=== PATIENT | male | born 1990 | race Caucasian/White ===

== ENCOUNTER 2019-05-24 18:33 | Inpatient (IN) | payer OTHER ==
[~2019-05-24] VITALS: Ht 165.1 cm; Wt 124.9 kg
[2019-05-24] MEDS ORDERED: ALBUTEROL (0.083%) 2.5MG/3ML NEB HHN STA (19:11)
[2019-05-24] MEDS ORDERED: MAGNESIUM 2 G PREMIX 50 ML IV STA (19:11)
[2019-05-24] MEDS ORDERED: METHYLPREDNISOLONE SOD SUCC 125 MG/2 ML VIAL IV STA (19:11)
[2019-05-24] MEDS ORDERED: IPRATROPIUM BROMIDE (0.02%) 0.5MG/2.5ML NEB HHN STA (19:11)
[2019-05-24] MEDS ORDERED: ALBUTEROL (0.083%) 2.5MG/3ML NEB HHN SCH (21:30)
[2019-05-24 22:46] LABS: BASOPHILS % 0.4 % (0.0-2.0); EOSINOPHILS % 0.7 % (0.0-5.0); HEMATOCRIT. 46.5 % (42.0-52.0); HEMOGLOBIN. 16.1 g/dL (14.0-18.0); LYMPHOCYTES % 7.8 % (20.0-50.0); MEAN CORPUSCULAR HEMOGLOBIN 31.4 pg (28.0-32.0); MEAN CORPUSCULAR VOLUME 90.9 fL (80.0-94.0); MONOCYTES % 2.2 % (2.0-8.0); NEUTROPHILS % 88.9 % (40.0-76.0); PLATELET 217 x1000/uL (130-400); RED BLOOD CELL COUNT 5.12 mill/uL (4.7-6.1); RED CELL DISTRIBUTION WIDTH 12.2 % (11.6-14.6)
[2019-05-24 22:54] LABS: CHLORIDE 103 mEq/L (98-107)
[2019-05-25] VITALS: BP 139/69
[2019-05-25] MEDS ORDERED: BECL10.6 IH (00:41)
[2019-05-25] MEDS ORDERED: ALBU18HF2 IH (00:41)
[2019-05-25] MEDS ORDERED: ZOLPIDEM TARTRATE 5MG TABLET PO PRN (01:00)
[2019-05-25] MEDS ORDERED: IPRATROPIUM/ALBUTEROL 0.5-3(2.5)MG/3ML NEB HHN PRN (01:45)
[2019-05-25 04:00] VITALS: BP 126/61
[2019-05-25] MEDS: IPRATROPIUM/ALBUTEROL 0.5-3(2.5)MG/3ML NEB HHN SCH ×3 (06:06→12:21)
[2019-05-25] MEDS: METHYLPREDNISOLONE SOD SUCC 40 MG/ML VIAL IV SCH ×2 (06:32→13:52)
[2019-05-25 08:00] VITALS: BP 131/65
[2019-05-25] MEDS ORDERED: PNEUMOCOCCAL 23-VAL P-SAC VAC 0.5 ML IM ONE (08:00)
[2019-05-25] MEDS ORDERED: INFLUENZA VIRUS VACCINE(AFLURIA) 0.5ML SYR IM ONE (10:00)
[2019-05-25 14:21] VITALS: BP 129/57
== END 2019-05-25 15:55 | disposition home or self-care (01) | DRG 141 ==
LOC: ER 18:33 → 7WST 22:28 → ENRESERV 23:20
PROVIDERS: ADMIT Internal Medicine; ATTEND Internal Medicine
DX: J45.901 Unspecified asthma with (acute) exacerbation (principal); Z68.42 Body mass index [BMI] 45.0-49.9, adult; E66.9 Obesity, unspecified; J98.11 Atelectasis; Z82.5 Family history of asthma and other chronic lower respiratory diseases; Z79.899 Other long term (current) drug therapy; Z71.89 Other specified counseling
CPT/HCPCS: 36415; 71045; 80053; 83880; 84484; 85025; 87804; 90686; 90732; 93005; 94640; 94644; 99285; J2920; J2930; J3475; J7611; J7620

== ENCOUNTER 2019-06-02 20:28 | Emergency (ER) | payer OTHER ==
[~2019-06-02] VITALS: Ht 165.1 cm; Wt 127.0 kg
[~2019-06-02 20:28] MED LIST: ALBU18HF2 IH; BECL10.6 IH
[2019-06-02] MEDS ORDERED: ALBUTEROL (0.083%) 2.5MG/3ML NEB HHN STA (21:13)
[2019-06-02] MEDS ORDERED: IPRATROPIUM BROMIDE (0.02%) 0.5MG/2.5ML NEB HHN STA (21:13)
[2019-06-02] MEDS ORDERED: PREDNISONE 20MG TABLET PO STA (21:13)
[2019-06-02] MEDS ORDERED: HYDROCODONE/ACETAMINOPHEN 5/325MG TABLET PO ONE (21:30)
[2019-06-02 23:18] VITALS: BP 135/65
== END 2019-06-02 23:19 | disposition home or self-care (01) ==
LOC: ER 20:28
DX: J45.901 Unspecified asthma with (acute) exacerbation (principal); S80.02XA Contusion of left knee, initial encounter; W01.0XXA Fall on same level from slipping, tripping and stumbling without subsequent striking against object, initial encounter; Y93.89 Activity, other specified; Y92.488 Other paved roadways as the place of occurrence of the external cause
CPT/HCPCS: 71045; 73560; 99283; J7512; J7611

== ENCOUNTER 2019-07-01 16:04 | Emergency (ER) | payer OTHER ==
[~2019-07-01] VITALS: Ht 162.6 cm; Wt 123.0 kg
[2019-07-01] MEDS ORDERED: DEXAMETHASONE 4MG TABLET PO ONE (16:30)
[2019-07-01] MEDS ORDERED: IPRATROPIUM/ALBUTEROL 0.5-3(2.5)MG/3ML NEB HHN ONE ×2 (16:30→17:00)
[2019-07-01] MEDS ORDERED: IPRATROPIUM BROMIDE (0.02%) 0.5MG/2.5ML NEB HHN ONE (17:00)
[2019-07-01] MEDS ORDERED: ALBUTEROL (0.5%) 2.5MG/0.5ML NEB HHN ONE (17:00)
[2019-07-01] MEDS ORDERED: ALBUTEROL 6.7GM HFA INHALER ORI ONE (17:15)
[2019-07-01 17:38] VITALS: BP 152/58
== END 2019-07-01 18:01 | disposition home or self-care (01) ==
LOC: ER 16:04
DX: J45.20 Mild intermittent asthma, uncomplicated (principal); J30.9 Allergic rhinitis, unspecified
CPT/HCPCS: 71045; 94640; 99283; J7610; J8540; Z7610

== ENCOUNTER 2019-07-13 00:56 | Emergency (ER) | payer OTHER ==
[~2019-07-13] VITALS: Ht 175.3 cm; Wt 125.0 kg
[2019-07-13] MEDS ORDERED: IPRATROPIUM BROMIDE (0.02%) 0.5MG/2.5ML NEB HHN STA (01:15)
[2019-07-13] MEDS ORDERED: PREDNISONE 20MG TABLET PO STA (01:15)
[2019-07-13] MEDS ORDERED: ALBUTEROL (0.083%) 2.5MG/3ML NEB HHN STA (01:15)
[2019-07-13 02:55] VITALS: BP 132/65
== END 2019-07-13 02:50 | disposition home or self-care (01) ==
LOC: ER 00:56
DX: J45.901 Unspecified asthma with (acute) exacerbation (principal); Z79.899 Other long term (current) drug therapy
CPT/HCPCS: 94640; 99283; J7512; Z7610

== ENCOUNTER 2019-07-22 22:05 | Emergency (ER) | payer OTHER ==
[~2019-07-22] VITALS: Ht 165.1 cm; Wt 115.0 kg
[2019-07-22] MEDS ORDERED: ALBUTEROL (0.083%) 2.5MG/3ML NEB HHN STA (22:42)
[2019-07-22] MEDS ORDERED: ACETAMINOPHEN WITH CODEINE 300/30MG TABLET PO STA (22:42)
[2019-07-22] MEDS ORDERED: PREDNISONE 20MG TABLET PO STA (22:42)
[2019-07-22] MEDS ORDERED: CEPHALEXIN 250MG CAPSULE PO ONE (22:45)
[2019-07-23] MEDS ORDERED: IPRATROPIUM/ALBUTEROL 0.5-3(2.5)MG/3ML NEB HHN ONE
[2019-07-23 01:35] VITALS: BP 136/89
== END 2019-07-23 01:39 | disposition home or self-care (01) ==
LOC: ER 22:05
DX: J45.901 Unspecified asthma with (acute) exacerbation (principal); L03.313 Cellulitis of chest wall
CPT/HCPCS: 71045; 94640; 99284; J7512; J7610; Z7610

== ENCOUNTER 2019-07-29 07:58 | Emergency (ER) | payer OTHER ==
[~2019-07-29] VITALS: Ht 167.6 cm; Wt 100.0 kg
[2019-07-29] MEDS ORDERED: CEPHALEXIN 250MG CAPSULE PO ONE (08:30)
[2019-07-29] MEDS ORDERED: SULFAMETHOXAZOLE/TRIMETHOPRIM 800/160MG TABLET PO ONE (08:30)
[2019-07-29] MEDS ORDERED: LIDOCAINE HCL/EPINEPHRINE 1%-EPI 1:100,000 30 ML VIAL INFIL ONE (08:30)
[2019-07-29] MEDS ORDERED: LIDOCAINE HCL/EPINEPHRINE 1%-EPI 1:100,000 20 ML VIAL INFIL NR (08:45)
[2019-07-29] MEDS ORDERED: HYDROCODONE/ACETAMINOPHEN 5/325MG TABLET PO ONE (09:15)
[2019-07-29 09:56] VITALS: BP 125/76
[2019-08-07] MEDS ORDERED: APIX5TAB MT (03:25)
== END 2019-07-29 09:59 | disposition home or self-care (01) ==
LOC: ER 08:10
DX: L02.213 Cutaneous abscess of chest wall (principal); J45.909 Unspecified asthma, uncomplicated
CPT/HCPCS: 10060; 99284; J3490

== ENCOUNTER 2019-07-30 22:38 | Emergency (ER) | payer OTHER ==
[~2019-07-30] VITALS: Ht 165.1 cm; Wt 123.0 kg
[2019-07-30] MEDS ORDERED: KETOROLAC 30MG/ML VIAL IM ONE (23:45)
[2019-07-31] MEDS ORDERED: CLINDAMYCIN 600 MG in DEXTROSE 5% WATER 50 ML IV ONE (00:15)
[2019-07-31] MEDS ORDERED: CLINDAMYCIN 600MG PREMIX 50 ML IV SCH (01:00)
[2019-07-31 01:13] VITALS: BP 128/81
== END 2019-07-31 01:17 | disposition home or self-care (01) ==
LOC: ER 22:38
DX: M79.89 Other specified soft tissue disorders (principal); J45.909 Unspecified asthma, uncomplicated
CPT/HCPCS: 96365; 96372; 99283; J1885; J3490; J7060

== ENCOUNTER 2019-08-04 02:21 | Emergency (ER) | payer OTHER ==
[~2019-08-04] VITALS: Ht 165.1 cm; Wt 123.0 kg
[2019-08-04 02:31] VITALS: BP 106/79
[2019-08-04] MEDS ORDERED: BACITRACIN ZINC OINT UDPKT TOP ONE (04:45)
[2019-08-05] MEDS ORDERED: METH-611 MT (14:15)
[2019-08-07] MEDS ORDERED: APIX5TAB MT (03:25)
== END 2019-08-04 05:21 | disposition home or self-care (01) ==
LOC: ER 02:21
DX: Z48.00 Encounter for change or removal of nonsurgical wound dressing (principal); L02.213 Cutaneous abscess of chest wall
CPT/HCPCS: 99282

== ENCOUNTER 2019-08-05 00:48 | Inpatient (IN) | payer OTHER ==
[~2019-08-05] VITALS: Ht 165.1 cm; Wt 128.8 kg
[2019-08-05 03:57] LABS: CHLORIDE 110 mEq/L (98-107)
[2019-08-05 04:06] LABS: BASOPHILS % 0.7 % (0.0-2.0); EOSINOPHILS % 5.6 % (0.0-5.0); HEMATOCRIT. 42.8 % (42.0-52.0); LYMPHOCYTES % 28.9 % (20.0-50.0); MEAN CORPUSCULAR HEMOGLOBIN 29.4 pg (28.0-32.0); MEAN CORPUSCULAR VOLUME 89.7 fL (80.0-94.0); MEAN PLATELET VOLUME 9.6 fl (7.4-10.4); MONOCYTES % 10.1 % (2.0-8.0); NEUTROPHILS % 54.7 % (40.0-76.0); PLATELET 162 x1000/uL (130-400); RED BLOOD CELL COUNT 4.77 mill/uL (4.7-6.1); RED CELL DISTRIBUTION WIDTH 12.3 % (11.6-14.6)
[2019-08-05] MEDS ORDERED: CLINDAMYCIN 900 MG in DEXTROSE 5% WATER 50 ML IV ONE (05:30)
[2019-08-05] MEDS ORDERED: ENOXAPARIN 120MG/0.8ML SYR SUBCUT ONE (06:30)
[2019-08-05] MEDS ORDERED: CLINDAMYCIN 900 MG PREMIX 50 ML IV ONE (06:45)
[2019-08-05] MEDS ORDERED: ACETAMINOPHEN 325MG TABLET PO PRN (09:00)
[2019-08-05] MEDS ORDERED: CLINDAMYCIN 600 MG in DEXTROSE 5% WATER 50 ML IV ONE (09:00)
[2019-08-05] MEDS ORDERED: ONDANSETRON HCL 4MG/2ML INJ IV PRN (09:00)
[2019-08-05] MEDS ORDERED: CLONIDINE 0.1MG TABLET PO PRN (09:00)
[2019-08-05] MEDS ORDERED: IPRATROPIUM/ALBUTEROL 0.5-3(2.5)MG/3ML NEB HHN PRN (09:00)
[2019-08-05 09:48] VITALS: BP 120/57
[2019-08-05] MEDS ORDERED: METH-611 MT (14:15)
[2019-08-05] MEDS ORDERED: METHADONE HCL 10MG TABLET PO NR (14:31)
[2019-08-05 17:06] LABS: PROTHROMBIN TIME 10.5 sec (9.6-11.0)
[2019-08-05 20:00] VITALS: BP 110/50
[2019-08-06] VITALS: BP 112/68
[2019-08-06] MEDS: ENOXAPARIN 150MG/ML SYR SUBCUT SCH ×2 (00:02→11:47)
[2019-08-06 04:00] VITALS: BP 112/51
[2019-08-06 07:21] LABS: BASOPHILS % 0.9 % (0.0-2.0); EOSINOPHILS % 7.1 % (0.0-5.0); HEMATOCRIT. 38.5 % (42.0-52.0); HEMOGLOBIN. 12.9 g/dL (14.0-18.0); LYMPHOCYTES % 42.9 % (20.0-50.0); MEAN CORPUSCULAR HEMOGLOBIN 29.7 pg (28.0-32.0); MEAN CORPUSCULAR VOLUME 88.8 fL (80.0-94.0); MONOCYTES % 9.9 % (2.0-8.0); NEUTROPHILS % 39.2 % (40.0-76.0); PLATELET 194 x1000/uL (130-400); RED BLOOD CELL COUNT 4.34 mill/uL (4.7-6.1); RED CELL DISTRIBUTION WIDTH 12.4 % (11.6-14.6)
[2019-08-06 07:32] LABS: CHLORIDE 111 mEq/L (98-107)
[2019-08-06 07:40] LABS: HDL CHOLESTEROL 31 mg/dL (40-59); LDL CHOLESTEROL 52 mg/dL (5-100)
[2019-08-06 08:00] VITALS: BP 114/57
[2019-08-06] MEDS ORDERED: METHADONE HCL 10MG TABLET PO SCH (09:00)
[2019-08-06 12:00] VITALS: BP 105/50
[2019-08-06 16:00] VITALS: BP 119/49
[2019-08-06] MEDS ORDERED: CEPH-569 MT (18:09)
[2019-08-06] MEDS ORDERED: APIX5TAB MT (18:09)
[2019-08-06 18:14] VITALS: BP 119/79
[2019-08-06] MEDS ORDERED: APIXABAN 5 MG TABLET PO SCH (21:00)
[2019-08-07] MEDS ORDERED: APIX5TAB MT (03:25)
[2019-08-13] MEDS ORDERED: APIXABAN 5 MG TABLET PO SCH (21:00)
== END 2019-08-06 18:37 | disposition home or self-care (01) | DRG 197 ==
LOC: ER 00:48 → 6EST 05:58 → EDBEDREQTM 06:04 → EDBEDREQ 06:04 → ENRESERV 09:16
PROVIDERS: ADMIT Internal Medicine; ATTEND Internal Medicine
PROC: 0W980ZZ Drainage of Chest Wall, Open Approach (ICD-10-PCS; principal; 2019-08-05)
DX: I82.412 Acute embolism and thrombosis of left femoral vein (principal); E66.01 Morbid (severe) obesity due to excess calories; L02.213 Cutaneous abscess of chest wall; K76.0 Fatty (change of) liver, not elsewhere classified; L03.116 Cellulitis of left lower limb; Z68.42 Body mass index [BMI] 45.0-49.9, adult; R74.0 Nonspecific elevation of levels of transaminase and lactic acid dehydrogenase [LDH]; J45.909 Unspecified asthma, uncomplicated; L30.9 Dermatitis, unspecified; Z59.0 Homelessness; Z79.01 Long term (current) use of anticoagulants; Z79.899 Other long term (current) drug therapy; Z71.3 Dietary counseling and surveillance
CPT/HCPCS: 36415; 71045; 76700; 80053; 80061; 80076; 83880; 84443; 84484; 85025; 93005; 93970; 99285; J1650; J3490; J7060

== ENCOUNTER 2019-08-09 00:03 | Emergency (ER) | payer OTHER ==
[~2019-08-09] VITALS: Ht 172.7 cm; Wt 123.0 kg
[~2019-08-09 00:03] MED LIST changes: +APIX5TAB MT; +CEPH-569 MT; +METH-611 MT
[2019-08-09] MEDS ORDERED: HYDROCODONE/ACETAMINOPHEN 5/325MG TABLET PO ONE (01:45)
[2019-08-09 01:51] VITALS: BP 130/66
== END 2019-08-09 04:13 | disposition home or self-care (01) ==
LOC: ER 00:03
DX: Z48.00 Encounter for change or removal of nonsurgical wound dressing (principal); M25.562 Pain in left knee; R03.0 Elevated blood-pressure reading, without diagnosis of hypertension; Z59.0 Homelessness
CPT/HCPCS: 73562; 99283; L1830

== ENCOUNTER 2019-09-28 21:33 | Emergency (ER) | payer OTHER ==
[~2019-09-28] VITALS: Ht 165.1 cm; Wt 127.0 kg
[2019-09-28] MEDS ORDERED: ALBUTEROL (0.083%) 2.5MG/3ML NEB HHN STA (23:29)
[2019-09-28] MEDS ORDERED: METHYLPREDNISOLONE SOD SUCC 125 MG/2 ML VIAL IV STA (23:29)
[2019-09-28] MEDS ORDERED: MAGNESIUM 2 G PREMIX 50 ML IV STA (23:29)
[2019-09-28] MEDS ORDERED: IPRATROPIUM BROMIDE (0.02%) 0.5MG/2.5ML NEB HHN STA (23:29)
[2019-09-28] MEDS ORDERED: SODIUM CHLORIDE 0.9% 1,000 ML IV ONE (23:29)
[2019-09-29 05:00] VITALS: BP 132/65
== END 2019-09-29 05:21 | disposition home or self-care (01) ==
LOC: ER 21:33
DX: J45.901 Unspecified asthma with (acute) exacerbation (principal); Z72.0 Tobacco use; F12.90 Cannabis use, unspecified, uncomplicated; Z79.51 Long term (current) use of inhaled steroids
CPT/HCPCS: 71045; 94644; 96365; 96366; 96375; 99285; J2930; J3475; J7030; Z7610

== ENCOUNTER 2019-10-16 | Emergency (ER) | payer OTHER ==
[~2019-10-16] VITALS: Ht 165.1 cm; Wt 118.0 kg
[2019-10-16] MEDS ORDERED: HYDROCODONE/ACETAMINOPHEN 5/325MG TABLET PO ONE (00:45)
[2019-10-16] MEDS ORDERED: ALBUTEROL (0.083%) 2.5MG/3ML NEB HHN STA ×2 (00:49→02:00)
[2019-10-16] MEDS ORDERED: PREDNISONE 20MG TABLET PO STA (00:49)
[2019-10-16] MEDS ORDERED: IPRATROPIUM BROMIDE (0.02%) 0.5MG/2.5ML NEB HHN STA ×2 (00:49→02:00)
[2019-10-16 03:06] VITALS: BP 140/66
== END 2019-10-16 03:07 | disposition home or self-care (01) ==
LOC: ER
DX: J45.901 Unspecified asthma with (acute) exacerbation (principal); F12.10 Cannabis abuse, uncomplicated; Z76.0 Encounter for issue of repeat prescription; Z79.899 Other long term (current) drug therapy
CPT/HCPCS: 71045; 94640; 99284; J7512; Z7610

== ENCOUNTER 2019-10-17 | Emergency (ER) | payer OTHER ==
[~2019-10-17] VITALS: Ht 165.1 cm; Wt 109.0 kg
[2019-10-17] MEDS ORDERED: ALBUTEROL (0.083%) 2.5MG/3ML NEB HHN STA ×2 (00:34→01:21)
[2019-10-17] MEDS ORDERED: IPRATROPIUM BROMIDE (0.02%) 0.5MG/2.5ML NEB HHN STA ×2 (00:34→01:21)
[2019-10-17 03:21] VITALS: BP 131/74
== END 2019-10-17 03:23 | disposition home or self-care (01) ==
LOC: ER
DX: J45.901 Unspecified asthma with (acute) exacerbation (principal); F12.10 Cannabis abuse, uncomplicated
CPT/HCPCS: 94640; 99284; Z7610

== ENCOUNTER 2019-10-24 00:14 | Emergency (ER) | payer OTHER ==
[~2019-10-24] VITALS: Ht 165.1 cm; Wt 118.0 kg
[2019-10-24 00:18] VITALS: BP 125/58
[2019-10-24] MEDS ORDERED: IPRATROPIUM BROMIDE (0.02%) 0.5MG/2.5ML NEB HHN STA (00:43)
[2019-10-24] MEDS ORDERED: PREDNISONE 20MG TABLET PO STA (00:43)
[2019-10-24] MEDS ORDERED: ALBUTEROL (0.083%) 2.5MG/3ML NEB HHN STA (00:43)
[2019-10-24] MEDS ORDERED: IPRATROPIUM BROMIDE (0.02%) 0.5MG/2.5ML NEB HHN ONE (02:00)
[2019-10-24] MEDS ORDERED: ALBUTEROL (0.5%) 2.5MG/0.5ML NEB HHN ONE (02:00)
== END 2019-10-24 03:56 | disposition home or self-care (01) ==
LOC: ER 00:14
DX: J45.901 Unspecified asthma with (acute) exacerbation (principal); F12.10 Cannabis abuse, uncomplicated
CPT/HCPCS: 94640; 99284; J7512; Z7610

== ENCOUNTER 2019-10-25 00:49 | Emergency (ER) | payer OTHER ==
[~2019-10-25] VITALS: Ht 165.1 cm; Wt 123.0 kg
[2019-10-25 00:51] VITALS: BP 133/77
[2019-10-25] MEDS ORDERED: ALBUTEROL (0.5%) 2.5MG/0.5ML NEB HHN ONE ×2 (01:15→02:24)
[2019-10-25] MEDS ORDERED: IPRATROPIUM BROMIDE (0.02%) 0.5MG/2.5ML NEB HHN ONE (01:15)
[2019-10-25] MEDS ORDERED: PREDNISONE 20MG TABLET PO ONE (01:15)
[2019-10-25] MEDS ORDERED: IPRATROPIUM BROMIDE (0.02%) 0.5MG/2.5ML NEB ONE (02:25)
== END 2019-10-25 06:45 | disposition home or self-care (01) ==
LOC: ER 00:49
DX: J45.909 Unspecified asthma, uncomplicated (principal); F12.10 Cannabis abuse, uncomplicated; E66.9 Obesity, unspecified; Z03.818 Encounter for observation for suspected exposure to other biological agents ruled out; Z68.42 Body mass index [BMI] 45.0-49.9, adult; Z91.14 Patient's other noncompliance with medication regimen
CPT/HCPCS: 87635; 99283; J7512; Z7610

== ENCOUNTER 2019-11-18 23:45 | Emergency (ER) | payer OTHER ==
[~2019-11-18] VITALS: Ht 165.1 cm; Wt 118.0 kg
[2019-11-19 01:13] VITALS: BP 130/65
[2019-11-19] MEDS ORDERED: ALBUTEROL (0.083%) 2.5MG/3ML NEB HHN ONE (01:15)
[2019-11-19] MEDS ORDERED: KETOROLAC 30MG/ML VIAL IM ONE (01:15)
[2019-11-19] MEDS ORDERED: PREDNISONE 20MG TABLET PO ONE (01:15)
[2019-11-19] MEDS ORDERED: PREDNISONE 20MG TABLET PO STA (01:22)
== END 2019-11-19 03:10 | disposition home or self-care (01) ==
LOC: ER 23:45
DX: S10.83XA Contusion of other specified part of neck, initial encounter (principal); L02.414 Cutaneous abscess of left upper limb; J45.901 Unspecified asthma with (acute) exacerbation; F12.10 Cannabis abuse, uncomplicated; Z79.899 Other long term (current) drug therapy; V73.6XXA Passenger on bus injured in collision with car, pick-up truck or van in traffic accident, initial encounter; Y93.89 Activity, other specified; Y92.488 Other paved roadways as the place of occurrence of the external cause; Y99.8 Other external cause status
CPT/HCPCS: 72040; 94640; 96372; 99283; J1885; J7512; Z7610

== ENCOUNTER 2019-12-10 05:26 | Emergency (ER) | payer OTHER ==
[~2019-12-10] VITALS: Ht 165.1 cm; Wt 123.0 kg
[2019-12-10 05:56] VITALS: BP 137/60
== END 2019-12-10 06:45 | disposition home or self-care (01) ==
LOC: ER 05:31
DX: L03.114 Cellulitis of left upper limb (principal); M79.602 Pain in left arm; Z76.0 Encounter for issue of repeat prescription; J45.909 Unspecified asthma, uncomplicated; F12.90 Cannabis use, unspecified, uncomplicated
CPT/HCPCS: 99284

== ENCOUNTER 2019-12-23 07:36 | Emergency (ER) | payer OTHER | END 2019-12-23 08:20 | disposition left against medical advice (07) | LOC: ER 07:36 | DX: R68.89 Other general symptoms and signs (principal); Z53.21 Procedure and treatment not carried out due to patient leaving prior to being seen by health care provider ==

== ENCOUNTER 2019-12-24 04:37 | Emergency (ER) | payer OTHER ==
[~2019-12-24] VITALS: Ht 165.1 cm; Wt 123.0 kg
[2019-12-24] MEDS ORDERED: ALBUTEROL (0.083%) 2.5MG/3ML NEB HHN ONE (06:15)
[2019-12-24] MEDS ORDERED: IBUPROFEN 600MG TABLET PO ONE (06:15)
[2019-12-24 06:46] VITALS: BP 134/50
== END 2019-12-24 07:09 | disposition home or self-care (01) ==
LOC: ER 04:47
DX: J45.901 Unspecified asthma with (acute) exacerbation (principal); F12.10 Cannabis abuse, uncomplicated; Z79.899 Other long term (current) drug therapy
CPT/HCPCS: 94640; 99283; Z7610

== ENCOUNTER 2019-12-31 03:57 | Emergency (ER) | payer OTHER ==
[~2019-12-31] VITALS: Ht 165.1 cm; Wt 127.0 kg
[2019-12-31] MEDS ORDERED: IPRATROPIUM BROMIDE (0.02%) 0.5MG/2.5ML NEB HHN STA (04:59)
[2019-12-31] MEDS ORDERED: ALBUTEROL (0.083%) 2.5MG/3ML NEB HHN STA (04:59)
[2019-12-31 05:50] VITALS: BP 122/61
== END 2019-12-31 05:56 | disposition home or self-care (01) ==
LOC: ER 03:57
DX: J45.909 Unspecified asthma, uncomplicated (principal); Z76.0 Encounter for issue of repeat prescription; F12.10 Cannabis abuse, uncomplicated
CPT/HCPCS: 94640; 99283; Z7610

== ENCOUNTER 2020-01-18 03:23 | Emergency (ER) | payer OTHER ==
[~2020-01-18] VITALS: Ht 165.1 cm; Wt 130.0 kg
[2020-01-18 03:26] VITALS: BP 149/46
[2020-01-18] MEDS ORDERED: ALBUTEROL (0.5%) 2.5MG/0.5ML NEB HHN ONE (04:00)
== END 2020-01-18 04:49 | disposition home or self-care (01) ==
LOC: ER 03:39
DX: J45.909 Unspecified asthma, uncomplicated (principal); F12.10 Cannabis abuse, uncomplicated; Z79.899 Other long term (current) drug therapy
CPT/HCPCS: 94640; 99283; Z7610

== ENCOUNTER 2020-03-12 23:54 | Emergency (ER) | payer OTHER ==
[~2020-03-12] VITALS: Ht 165.1 cm; Wt 123.0 kg
[2020-03-13] MEDS: ALBUTEROL (0.083%) 2.5MG/3ML NEB HHN STA (00:41)
[2020-03-13] MEDS: IPRATROPIUM BROMIDE (0.02%) 0.5MG/2.5ML NEB HHN STA (00:41)
[2020-03-13] MEDS: IBUPROFEN 600MG TABLET PO ONE ×2 (01:32→01:33)
[2020-03-13 01:45] VITALS: BP 143/69
== END 2020-03-13 02:11 | disposition home or self-care (01) ==
LOC: ER 23:54
DX: J45.909 Unspecified asthma, uncomplicated (principal); Z76.0 Encounter for issue of repeat prescription; F12.10 Cannabis abuse, uncomplicated
CPT/HCPCS: 93005; 94640; 99283; Z7610

== ENCOUNTER 2020-03-28 23:33 | Emergency (ER) | payer OTHER ==
[~2020-03-28] VITALS: Ht 165.1 cm; Wt 127.0 kg
[2020-03-29] MEDS ORDERED: LIDOCAINE HCL/EPINEPHRINE 1%-EPI 1:100,000 20 ML VIAL INFIL NR (01:15)
[2020-03-29] MEDS ORDERED: TETANUS, DIPHTHERIA, PERTUSSIS VAC/PF 0.5ML (>7YR OLD) IM ONE (01:15)
[2020-03-29] MEDS ORDERED: CEPHALEXIN 250MG CAPSULE PO ONE (01:15)
[2020-03-29] MEDS ORDERED: IBUPROFEN 600MG TABLET PO ONE (01:15)
[2020-03-29] MEDS ORDERED: SULFAMETHOXAZOLE/TRIMETHOPRIM 800/160MG TABLET PO ONE (01:15)
[2020-03-29] MEDS ORDERED: LIDOCAINE 1%/EPI 1:100,000 10 ML VIAL IJ ONE (01:15)
[2020-03-29] MEDS ORDERED: BACITRACIN ZINC OINT UDPKT TOP ONE (01:15)
[2020-03-29 03:30] VITALS: BP 140/68
== END 2020-03-29 03:43 | disposition home or self-care (01) ==
LOC: ER 23:33
DX: L03.115 Cellulitis of right lower limb (principal); Z76.0 Encounter for issue of repeat prescription; J45.909 Unspecified asthma, uncomplicated; F12.10 Cannabis abuse, uncomplicated; F11.10 Opioid abuse, uncomplicated; F17.210 Nicotine dependence, cigarettes, uncomplicated; E66.9 Obesity, unspecified; Z68.42 Body mass index [BMI] 45.0-49.9, adult
CPT/HCPCS: 90471; 90715; 99284; J3490

== ENCOUNTER 2020-09-01 05:24 | Emergency (ER) | payer MEDICAID, OTHER ==
[~2020-09-01] VITALS: Ht 165.1 cm; Wt 121.0 kg
[2020-09-01] MEDS ORDERED: PREDNISONE 20MG TABLET PO STA (08:17)
[2020-09-01] MEDS ORDERED: ALBUTEROL (0.083%) 2.5MG/3ML NEB HHN STA (08:17)
[2020-09-01] MEDS ORDERED: IPRATROPIUM BROMIDE (0.02%) 0.5MG/2.5ML NEB HHN STA (08:17)
[2020-09-01] MEDS ORDERED: ACETAMINOPHEN WITH CODEINE 300/30MG TABLET PO ONE (09:00)
[2020-09-01 09:08] VITALS: BP 135/89
[2020-09-01] MEDS ORDERED: IBUP-2028 PO (10:22)
[2020-09-01] MEDS ORDERED: T3 PO (10:30)
[2020-09-01] MEDS ORDERED: ALBU6.7H11 INH (10:31)
[2020-09-01] MEDS ORDERED: P50 PO (10:31)
== END 2020-09-01 10:45 | disposition home or self-care (01) ==
LOC: ER 05:24
DX: S02.601A Fracture of unspecified part of body of right mandible, initial encounter for closed fracture (principal); J45.901 Unspecified asthma with (acute) exacerbation; F12.10 Cannabis abuse, uncomplicated; F11.10 Opioid abuse, uncomplicated; Y04.0XXA Assault by unarmed brawl or fight, initial encounter; Y93.89 Activity, other specified; Y92.89 Other specified places as the place of occurrence of the external cause
CPT/HCPCS: 70486; 93005; 94640; 99284; J7512; Z7610

== ENCOUNTER 2020-11-26 09:14 | Emergency (ER) | payer MEDICAID, OTHER ==
[~2020-11-26] VITALS: Ht 165.1 cm; Wt 122.0 kg
[~2020-11-26 09:14] MED LIST changes: +ALBU6.7H11 INH; +IBUP-2028 PO; +P50 PO; +T3 PO
[2020-11-26] MEDS ORDERED: PREDNISONE 20MG TABLET PO STA (09:36)
[2020-11-26] MEDS ORDERED: ALBUTEROL (0.083%) 2.5MG/3ML NEB HHN STA (09:36)
[2020-11-26] MEDS ORDERED: IPRATROPIUM BROMIDE (0.02%) 0.5MG/2.5ML NEB HHN STA (09:36)
[2020-11-26] MEDS ORDERED: ALBU18HF2 IH (09:40)
[2020-11-26] MEDS ORDERED: P50 PO (09:41)
[2020-11-26 13:15] VITALS: BP 114/54
== END 2020-11-26 13:32 | disposition home or self-care (01) ==
LOC: ER 09:14
DX: J45.901 Unspecified asthma with (acute) exacerbation (principal); F11.10 Opioid abuse, uncomplicated; F12.10 Cannabis abuse, uncomplicated; Z79.899 Other long term (current) drug therapy; Z98.890 Other specified postprocedural states
CPT/HCPCS: 71045; 94640; 99285; J7512; Z7610

== ENCOUNTER 2021-05-17 05:46 | Emergency (ER) | payer OTHER ==
[~2021-05-17] VITALS: Ht 165.1 cm; Wt 118.0 kg
[~2021-05-17 05:46] MED LIST changes: -ALBU6.7H11 INH; +ALBU6.7H15 INH; -METH-611 MT; +METH-819 MT
[2021-05-17] MEDS ORDERED: IPRATROPIUM BROMIDE (0.02%) 0.5MG/2.5ML NEB HHN STA (07:36)
[2021-05-17] MEDS: ALBUTEROL (0.083%) 2.5MG/3ML NEB HHN SCH ×4 (08:25→11:00)
[2021-05-17] MEDS ORDERED: PREDNISONE 20MG TABLET PO ONE (08:30)
[2021-05-17] MEDS ORDERED: IBUPROFEN 400MG TABLET PO ONE (09:45)
[2021-05-17 09:55] VITALS: BP 142/94
[2021-05-17] MEDS ORDERED: ALBU6.7H9 INH (12:01)
[2021-05-17] MEDS ORDERED: MONT10TA21 MT (12:02)
[2021-05-17] MEDS ORDERED: IBUP-2028 MT (12:02)
[2021-05-17] MEDS ORDERED: P50 MT (12:02)
== END 2021-05-17 12:18 | disposition home or self-care (01) ==
LOC: ER 05:46
DX: J45.901 Unspecified asthma with (acute) exacerbation (principal); F12.10 Cannabis abuse, uncomplicated; F11.10 Opioid abuse, uncomplicated; Z79.899 Other long term (current) drug therapy
CPT/HCPCS: 94640; 99283; J7512; Z7610

== ENCOUNTER 2021-05-28 03:10 | Emergency (ER) | payer OTHER ==
[~2021-05-28] VITALS: Ht 165.1 cm; Wt 118.0 kg
[~2021-05-28 03:10] MED LIST changes: +ALBU6.7H9 INH; +IBUP-2028 MT; +MONT10TA21 MT; +P50 MT
[2021-05-28 03:26] VITALS: BP 158/79
[2021-05-28] MEDS ORDERED: PREDNISONE 20MG TABLET PO ONE (04:00)
[2021-05-28] MEDS ORDERED: IPRATROPIUM/ALBUTEROL 0.5-3(2.5)MG/3ML NEB HHN ONE (04:00)
[2021-05-28] MEDS ORDERED: P20 MT (04:23)
[2021-05-28] MEDS ORDERED: ALBU6.7H9 INH (04:23)
== END 2021-05-28 04:56 | disposition home or self-care (01) ==
LOC: ER 03:10
DX: J45.901 Unspecified asthma with (acute) exacerbation (principal); F12.10 Cannabis abuse, uncomplicated; F11.10 Opioid abuse, uncomplicated; Z68.41 Body mass index [BMI] 40.0-44.9, adult; Z79.899 Other long term (current) drug therapy
CPT/HCPCS: 94640; 99283; J7512; Z7610

== ENCOUNTER 2021-06-08 05:43 | Emergency (ER) | payer OTHER ==
[~2021-06-08] VITALS: Ht 165.1 cm; Wt 118.0 kg
[~2021-06-08 05:43] MED LIST changes: +P20 MT
[2021-06-08] MEDS ORDERED: IPRATROPIUM BROMIDE (0.02%) 0.5MG/2.5ML NEB HHN STA (05:55)
[2021-06-08] MEDS ORDERED: ALBUTEROL (0.083%) 2.5MG/3ML NEB HHN STA (05:55)
[2021-06-08] MEDS ORDERED: PREDNISONE 20MG TABLET PO STA (06:13)
[2021-06-08 06:49] VITALS: BP 117/49
[2021-06-08] MEDS ORDERED: ALBU6.7H9 INH (06:56)
[2021-06-08] MEDS ORDERED: P20 MT (06:56)
== END 2021-06-08 07:19 | disposition home or self-care (01) ==
LOC: ER 05:43
DX: J45.901 Unspecified asthma with (acute) exacerbation (principal)
CPT/HCPCS: 94640; 99283; J7512; Z7610

== ENCOUNTER 2021-06-16 04:03 | Emergency (ER) | payer OTHER ==
[~2021-06-16] VITALS: Ht 165.1 cm; Wt 118.0 kg
[2021-06-16] MEDS ORDERED: ACETAMINOPHEN 325MG TABLET PO ONE (04:45)
[2021-06-16] MEDS ORDERED: PREDNISONE 20MG TABLET PO ONE (04:45)
[2021-06-16] MEDS ORDERED: IPRATROPIUM/ALBUTEROL 0.5-3(2.5)MG/3ML NEB HHN ONE ×2 (04:45→05:45)
[2021-06-16] MEDS ORDERED: MAGNESIUM 2 G PREMIX 50 ML IV ONE (06:00)
[2021-06-16] MEDS ORDERED: ALBU6.7H15 INH (07:05)
[2021-06-16] MEDS ORDERED: P20 MT (07:05)
[2021-06-16 07:36] VITALS: BP 135/68
== END 2021-06-16 07:57 | disposition home or self-care (01) ==
LOC: ER 04:03
DX: J45.901 Unspecified asthma with (acute) exacerbation (principal); F12.10 Cannabis abuse, uncomplicated; F11.10 Opioid abuse, uncomplicated; Z79.899 Other long term (current) drug therapy
CPT/HCPCS: 94640; 96365; 99284; J3475; J7512; Z7610

== ENCOUNTER 2021-07-01 06:12 | Emergency (ER) | payer OTHER ==
[~2021-07-01] VITALS: Ht 165.1 cm; Wt 118.0 kg
[2021-07-01] MEDS ORDERED: METHYLPREDNISOLONE SOD SUCC 125 MG/2 ML VIAL IV STA (06:54)
[2021-07-01] MEDS ORDERED: IPRATROPIUM BROMIDE (0.02%) 0.5MG/2.5ML NEB HHN STA (06:54)
[2021-07-01] MEDS ORDERED: MAGNESIUM 2 G PREMIX 50 ML IV STA (06:54)
[2021-07-01] MEDS ORDERED: ALBUTEROL (0.083%) 2.5MG/3ML NEB HHN STA (06:54)
[2021-07-01] MEDS ORDERED: ALBU6.7H9 INH (08:35)
[2021-07-01] MEDS ORDERED: P50 PO (08:35)
[2021-07-01] MEDS ORDERED: KETOROLAC 30MG/ML VIAL IV ONE (08:45)
[2021-07-01 09:58] VITALS: BP 101/54
== END 2021-07-01 10:03 | disposition left against medical advice (07) ==
LOC: ER 06:12
DX: J45.901 Unspecified asthma with (acute) exacerbation (principal); Z79.899 Other long term (current) drug therapy
CPT/HCPCS: 71045; 94640; 99283; Z7610; J3475

== ENCOUNTER 2021-07-15 05:01 | Emergency (ER) | payer OTHER ==
[~2021-07-15] VITALS: Ht 165.1 cm; Wt 123.0 kg
[2021-07-15] MEDS ORDERED: METHYLPREDNISOLONE SOD SUCC 125 MG/2 ML VIAL IM STA (05:23)
[2021-07-15] MEDS ORDERED: IPRATROPIUM BROMIDE (0.02%) 0.5MG/2.5ML NEB HHN STA ×2 (05:23→05:49)
[2021-07-15] MEDS ORDERED: ALBUTEROL (0.083%) 2.5MG/3ML NEB HHN STA ×2 (05:23→05:49)
[2021-07-15] MEDS ORDERED: METHYLPREDNISOLONE SOD SUCC 125 MG/2 ML VIAL IV STA (05:49)
[2021-07-15] MEDS ORDERED: MAGNESIUM 2 G PREMIX 50 ML IV STA (05:49)
[2021-07-15 08:08] LABS: BASOPHILS % 0.5 % (0.0-2.0); EOSINOPHILS % 2.6 % (0.0-5.0); HEMATOCRIT. 36.4 % (42.0-52.0); HEMOGLOBIN. 12.3 g/dL (14.0-18.0); LYMPHOCYTES % 31.2 % (20.0-50.0); MEAN CORPUSCULAR HEMOGLOBIN 29.2 pg (28.0-32.0); MEAN PLATELET VOLUME 9.2 fl (7.4-10.4); MONOCYTES % 5.2 % (2.0-8.0); NEUTROPHILS % 60.5 % (40.0-76.0); PLATELET 164 x1000/uL (130-400); RED BLOOD CELL COUNT 4.23 mill/uL (4.7-6.1)
[2021-07-15 08:09] LABS: CHLORIDE 106 mEq/L (98-107)
[2021-07-15] MEDS ORDERED: P50 PO (12:40)
[2021-07-15] MEDS ORDERED: ALBU6.7H9 INH (12:40)
[2021-07-15 13:04] VITALS: BP 121/61
== END 2021-07-15 13:00 | disposition left against medical advice (07) ==
LOC: ER 05:01 → CANBEDREQ 16:44
DX: J45.901 Unspecified asthma with (acute) exacerbation (principal); R09.02 Hypoxemia
CPT/HCPCS: 36415; 71045; 80053; 83880; 84484; 85025; 94644; 96365; 96375; 99285; J2930; J3475; Z7610

== ENCOUNTER 2021-08-02 04:11 | Emergency (ER) | payer OTHER ==
[~2021-08-02] VITALS: Ht 165.1 cm; Wt 118.0 kg
[~2021-08-02 04:11] MED LIST changes: +CEPH500C2 MT; +SULF1TAB48 MT; +TOPUD MT
[2021-08-02 05:17] VITALS: BP 128/68
[2021-08-02] MEDS ORDERED: ALBUTEROL (0.083%) 2.5MG/3ML NEB HHN STA (05:29)
[2021-08-02] MEDS ORDERED: IPRATROPIUM BROMIDE (0.02%) 0.5MG/2.5ML NEB HHN STA (05:29)
[2021-08-02] MEDS ORDERED: METHYLPREDNISOLONE SOD SUCC 125 MG/2 ML VIAL IM STA (05:29)
[2021-08-02] MEDS ORDERED: BACITRACIN ZINC OINT UDPKT TOP ONE (05:30)
[2021-08-02] MEDS ORDERED: ALBU18HF2 IH (06:07)
[2021-08-02] MEDS ORDERED: BECL10.62 INH (06:07)
== END 2021-08-02 07:20 | disposition home or self-care (01) ==
LOC: ER 04:39
DX: L02.414 Cutaneous abscess of left upper limb (principal); J45.901 Unspecified asthma with (acute) exacerbation; J45.909 Unspecified asthma, uncomplicated; Z79.899 Other long term (current) drug therapy
CPT/HCPCS: 94640; 99283; Z7610; J2930

== ENCOUNTER 2021-08-14 03:29 | Emergency (ER) | payer OTHER ==
[~2021-08-14] VITALS: Ht 165.1 cm; Wt 132.1 kg
[~2021-08-14 03:29] MED LIST changes: +BECL10.62 INH
[2021-08-14 04:17] VITALS: BP 130/79
[2021-08-14] MEDS ORDERED: PREDNISONE 20MG TABLET PO STA (05:15)
[2021-08-14] MEDS ORDERED: ALBUTEROL (0.083%) 2.5MG/3ML NEB HHN STA (05:15)
[2021-08-14] MEDS ORDERED: IPRATROPIUM BROMIDE (0.02%) 0.5MG/2.5ML NEB HHN STA (05:15)
[2021-08-14 05:39] LABS: BASOPHILS % 0.5 % (0.0-2.0); EOSINOPHILS % 3.6 % (0.0-5.0); HEMATOCRIT. 35.9 % (42.0-52.0); HEMOGLOBIN. 12.2 g/dL (14.0-18.0); LYMPHOCYTES % 34.3 % (20.0-50.0); MEAN CORPUSCULAR HEMOGLOBIN 29.4 pg (28.0-32.0); MEAN CORPUSCULAR VOLUME 86.9 fL (80.0-94.0); MONOCYTES % 10.7 % (2.0-8.0); NEUTROPHILS % 50.9 % (40.0-76.0); PLATELET 179 x1000/uL (130-400); RED BLOOD CELL COUNT 4.13 mill/uL (4.7-6.1); RED CELL DISTRIBUTION WIDTH 14.1 % (11.6-14.6)
[2021-08-14 06:06] LABS: CHLORIDE 104 mEq/L (98-107); ETHANOL BLOOD < 10 mg/dL
[2021-08-14] MEDS ORDERED: ALBU05 NEB (08:28)
[2021-08-14] MEDS ORDERED: ALBU6.7H9 INH (08:28)
[2021-08-14] MEDS ORDERED: IBUP-2029 MT (08:29)
[2021-08-14] MEDS ORDERED: P50 MT (08:29)
== END 2021-08-14 08:50 | disposition home or self-care (01) ==
LOC: ER 03:29
DX: J45.901 Unspecified asthma with (acute) exacerbation (principal); Z79.899 Other long term (current) drug therapy
CPT/HCPCS: 36415; 71045; 80053; 80320; 85025; 93005; 94640; 99285; J7512; Z7610; G0480

== ENCOUNTER 2021-08-21 01:09 | Emergency (ER) | payer OTHER ==
[~2021-08-21] VITALS: Ht 165.1 cm; Wt 120.0 kg
[~2021-08-21 01:09] MED LIST changes: +ALBU05 NEB; +IBUP-2029 MT
[2021-08-21] MEDS ORDERED: PREDNISONE 20MG TABLET PO STA (02:13)
[2021-08-21] MEDS ORDERED: IPRATROPIUM BROMIDE (0.02%) 0.5MG/2.5ML NEB HHN STA ×2 (02:13→03:39)
[2021-08-21] MEDS ORDERED: ACETAMINOPHEN 325MG TABLET PO ONE (02:15)
[2021-08-21] MEDS ORDERED: AMOXICILLIN/POTASSIUM CLAVULANATE 875/125MG TAB PO ONE (02:15)
[2021-08-21] MEDS: ALBUTEROL (0.083%) 2.5MG/3ML NEB HHN SCH ×8 (02:44→05:36)
[2021-08-21] MEDS ORDERED: P50 MT (05:33)
[2021-08-21] MEDS ORDERED: ALBU6.7H9 INH (05:33)
[2021-08-21] MEDS ORDERED: AMOX-424 MT (05:33)
[2021-08-21 06:00] VITALS: BP 130/55
== END 2021-08-21 06:00 | disposition home or self-care (01) ==
LOC: ER 01:09
DX: J45.901 Unspecified asthma with (acute) exacerbation (principal); K04.7 Periapical abscess without sinus; F17.290 Nicotine dependence, other tobacco product, uncomplicated; Z79.899 Other long term (current) drug therapy
CPT/HCPCS: 94640; 99285; J7512; Z7610

== ENCOUNTER 2021-08-26 05:06 | Emergency (ER) | payer OTHER ==
[~2021-08-26] VITALS: Ht 165.1 cm; Wt 118.0 kg
[~2021-08-26 05:06] MED LIST changes: +AMOX-424 MT
[2021-08-26] MEDS ORDERED: METHYLPREDNISOLONE SOD SUCC 125 MG/2 ML VIAL IM STA (05:36)
[2021-08-26] MEDS ORDERED: ALBUTEROL (0.083%) 2.5MG/3ML NEB HHN STA (05:36)
[2021-08-26] MEDS ORDERED: IPRATROPIUM BROMIDE (0.02%) 0.5MG/2.5ML NEB HHN STA (05:36)
[2021-08-26] MEDS ORDERED: ALBU6.7H9 INH (06:26)
[2021-08-26] MEDS ORDERED: P50 PO (07:03)
[2021-08-26 08:28] VITALS: BP 123/57
== END 2021-08-26 08:28 | disposition home or self-care (01) ==
LOC: ER 05:06
DX: J45.901 Unspecified asthma with (acute) exacerbation (principal); F11.10 Opioid abuse, uncomplicated
CPT/HCPCS: 94644; 96372; 99285; J2930; Z7610

== ENCOUNTER 2021-09-13 04:30 | Emergency (ER) | payer OTHER ==
[~2021-09-13] VITALS: Ht 165.1 cm; Wt 129.0 kg
[2021-09-13] MEDS ORDERED: ALBUTEROL (0.083%) 2.5MG/3ML NEB HHN STA (05:53)
[2021-09-13] MEDS ORDERED: IBUPROFEN 600MG TABLET PO STA (05:53)
[2021-09-13] MEDS ORDERED: PREDNISONE 20MG TABLET PO STA (05:53)
[2021-09-13] MEDS ORDERED: IPRATROPIUM BROMIDE (0.02%) 0.5MG/2.5ML NEB HHN STA (05:53)
[2021-09-13] MEDS ORDERED: CEPH500T MT (07:33)
[2021-09-13] MEDS ORDERED: ALBU6.7H9 INH (07:33)
[2021-09-13] MEDS ORDERED: P50 MT (07:33)
[2021-09-13] MEDS ORDERED: ALBUTEROL (0.083%) 2.5MG/3ML NEB HHN ONE (10:00)
[2021-09-13 10:50] VITALS: BP 120/62
== END 2021-09-13 10:53 | disposition home or self-care (01) ==
LOC: ER 04:30
DX: J45.901 Unspecified asthma with (acute) exacerbation (principal); L03.116 Cellulitis of left lower limb; Z79.899 Other long term (current) drug therapy
CPT/HCPCS: 71045; 73590; 94640; 99284; J7512; Z7610

== ENCOUNTER 2021-09-27 04:00 | Emergency (ER) | payer OTHER ==
[~2021-09-27] VITALS: Ht 165.1 cm; Wt 127.0 kg
[~2021-09-27 04:00] MED LIST changes: +CEPH500T MT
[2021-09-27] MEDS ORDERED: ALBU90AE INH (04:57)
[2021-09-27] MEDS ORDERED: IBUP-2029 MT (04:57)
[2021-09-27] MEDS ORDERED: IBUPROFEN 600MG TABLET PO ONE (05:00)
[2021-09-27] MEDS ORDERED: ALBUTEROL (0.5%) 2.5MG/0.5ML NEB HHN ONE (05:00)
[2021-09-27 05:15] VITALS: BP 129/61
== END 2021-09-27 05:36 | disposition home or self-care (01) ==
LOC: ER 04:00
DX: J45.901 Unspecified asthma with (acute) exacerbation (principal); G89.29 Other chronic pain; Z76.0 Encounter for issue of repeat prescription; Z79.899 Other long term (current) drug therapy
CPT/HCPCS: 94640; 99283; Z7610

== ENCOUNTER 2021-10-04 05:19 | Emergency (ER) | payer OTHER ==
[~2021-10-04] VITALS: Ht 167.6 cm; Wt 134.6 kg
[~2021-10-04 05:19] MED LIST changes: +ALBU90AE INH
[2021-10-04 08:05] VITALS: BP 143/70
[2021-10-04] MEDS ORDERED: METHYLPREDNISOLONE SOD SUCC 125 MG/2 ML VIAL IV STA (08:08)
[2021-10-04] MEDS ORDERED: IPRATROPIUM BROMIDE (0.02%) 0.5MG/2.5ML NEB HHN STA (08:08)
[2021-10-04] MEDS ORDERED: IBUPROFEN 400MG TABLET PO ONE (08:15)
[2021-10-04 09:14] LABS: BASOPHILS % 0.7 % (0.0-2.0); EOSINOPHILS % 3.8 % (0.0-5.0); HEMATOCRIT. 33.4 % (42.0-52.0); HEMOGLOBIN. 11.1 g/dL (14.0-18.0); LYMPHOCYTES % 32.3 % (20.0-50.0); MEAN CORPUSCULAR HEMOGLOBIN 28.1 pg (28.0-32.0); MEAN CORPUSCULAR VOLUME 84.5 fL (80.0-94.0); MEAN PLATELET VOLUME 8.4 fl (7.4-10.4); MONOCYTES % 8.4 % (2.0-8.0); NEUTROPHILS % 54.8 % (40.0-76.0); PLATELET 215 x1000/uL (130-400); RED BLOOD CELL COUNT 3.96 mill/uL (4.7-6.1); RED CELL DISTRIBUTION WIDTH 13.9 % (11.6-14.6)
[2021-10-04 09:26] LABS: CHLORIDE 105 mEq/L (98-107)
[2021-10-04] MEDS: ALBUTEROL (0.083%) 2.5MG/3ML NEB HHN SCH ×3 (09:26→10:30)
[2021-10-04] MEDS ORDERED: P50 MT (12:06)
[2021-10-04] MEDS ORDERED: ALBU6.7H9 INH (12:06)
[2021-10-04] MEDS ORDERED: IBUP-2028 MT (12:07)
== END 2021-10-04 12:21 | disposition home or self-care (01) ==
LOC: ER 05:19
DX: J45.901 Unspecified asthma with (acute) exacerbation (principal); M79.89 Other specified soft tissue disorders; Z79.899 Other long term (current) drug therapy
CPT/HCPCS: 36415; 71045; 80053; 83880; 84484; 85025; 93005; 93970; 94640; 96374; 99285; J2930; Z7610

== ENCOUNTER 2021-10-14 05:45 | Emergency (ER) | payer OTHER ==
[~2021-10-14] VITALS: Ht 165.1 cm; Wt 127.9 kg
[2021-10-14] MEDS ORDERED: PREDNISONE 20MG TABLET PO STA (06:03)
[2021-10-14] MEDS ORDERED: ALBUTEROL (0.083%) 2.5MG/3ML NEB HHN STA (06:03)
[2021-10-14] MEDS ORDERED: IPRATROPIUM BROMIDE (0.02%) 0.5MG/2.5ML NEB HHN STA (06:03)
[2021-10-14] MEDS ORDERED: ALBUTEROL (0.083%) 2.5MG/3ML NEB HHN NR (09:00)
[2021-10-14] MEDS ORDERED: IPRATROPIUM BROMIDE (0.02%) 0.5MG/2.5ML NEB HHN NR (09:00)
[2021-10-14] MEDS ORDERED: P50 PO (10:45)
[2021-10-14] MEDS ORDERED: ALBU6.7H9 INH (10:45)
[2021-10-14 10:55] VITALS: BP 119/51
== END 2021-10-14 13:42 | disposition home or self-care (01) ==
LOC: ER 05:45
DX: J45.901 Unspecified asthma with (acute) exacerbation (principal); Z86.718 Personal history of other venous thrombosis and embolism; Z79.01 Long term (current) use of anticoagulants
CPT/HCPCS: 71045; 94640; 99283; J7512; Z7610

== ENCOUNTER 2021-10-24 05:34 | Emergency (ER) | payer OTHER ==
[~2021-10-24] VITALS: Ht 165.1 cm; Wt 127.0 kg
[2021-10-24] MEDS ORDERED: IPRATROPIUM BROMIDE (0.02%) 0.5MG/2.5ML NEB HHN STA ×2 (06:58→09:08)
[2021-10-24] MEDS ORDERED: PREDNISONE 20MG TABLET PO STA (06:58)
[2021-10-24] MEDS ORDERED: ALBUTEROL (0.083%) 2.5MG/3ML NEB HHN STA ×2 (06:58→09:08)
[2021-10-24] MEDS ORDERED: ALBU6.7H15 INH (10:48)
[2021-10-24] MEDS ORDERED: P50 MT (10:48)
[2021-10-24 11:18] VITALS: BP 139/86
== END 2021-10-24 11:19 | disposition home or self-care (01) ==
LOC: ER 05:34
DX: J45.901 Unspecified asthma with (acute) exacerbation (principal); R03.0 Elevated blood-pressure reading, without diagnosis of hypertension; Z86.718 Personal history of other venous thrombosis and embolism; Z90.89 Acquired absence of other organs; Z79.01 Long term (current) use of anticoagulants
CPT/HCPCS: 71045; 94640; 94644; 99285; J7512; Z7610

== ENCOUNTER 2021-10-31 04:49 | Emergency (ER) | payer OTHER ==
[~2021-10-31] VITALS: Ht 165.1 cm; Wt 127.0 kg
[2021-10-31] MEDS ORDERED: ALBUTEROL (0.083%) 2.5MG/3ML NEB HHN STA ×2 (05:33→08:20)
[2021-10-31] MEDS ORDERED: PREDNISONE 20MG TABLET PO STA (05:33)
[2021-10-31] MEDS ORDERED: IPRATROPIUM BROMIDE (0.02%) 0.5MG/2.5ML NEB HHN STA (05:33)
[2021-10-31] MEDS ORDERED: PREDNISONE 20MG TABLET PO NR (07:30)
[2021-10-31 07:52] VITALS: BP 148/68
[2021-10-31] MEDS ORDERED: ALBU6.7H9 INH (10:07)
[2021-10-31] MEDS ORDERED: P20 MT (10:07)
== END 2021-10-31 10:40 | disposition home or self-care (01) ==
LOC: ER 04:49
DX: J45.901 Unspecified asthma with (acute) exacerbation (principal); Z86.718 Personal history of other venous thrombosis and embolism; Z79.01 Long term (current) use of anticoagulants
CPT/HCPCS: 71045; 94640; 99283; J7512; Z7610

== ENCOUNTER 2021-11-05 09:38 | Emergency (ER) | payer OTHER ==
[~2021-11-05] VITALS: Ht 165.1 cm; Wt 127.0 kg
[2021-11-05 09:41] VITALS: BP 108/60
[2021-11-05] MEDS ORDERED: ALBUTEROL (0.083%) 2.5MG/3ML NEB HHN ONE ×2 (10:00→11:00)
[2021-11-05] MEDS ORDERED: CEPHALEXIN 250MG CAPSULE PO ONE (10:00)
[2021-11-05] MEDS ORDERED: ALBU6.7H9 INH (11:36)
[2021-11-05] MEDS ORDERED: CEPH500C2 MT (11:36)
== END 2021-11-05 11:48 | disposition home or self-care (01) ==
LOC: ER 09:38
DX: J45.901 Unspecified asthma with (acute) exacerbation (principal); L03.114 Cellulitis of left upper limb; E66.9 Obesity, unspecified; Z68.42 Body mass index [BMI] 45.0-49.9, adult; Z86.718 Personal history of other venous thrombosis and embolism; Z79.01 Long term (current) use of anticoagulants
CPT/HCPCS: 94640; 99284; Z7610

== ENCOUNTER 2021-11-12 08:26 | Emergency (ER) | payer OTHER ==
[~2021-11-12] VITALS: Ht 165.1 cm; Wt 127.0 kg
[2021-11-12] MEDS ORDERED: PREDNISONE 20MG TABLET PO ONE ×2 (10:30→13:30)
[2021-11-12] MEDS ORDERED: IPRATROPIUM/ALBUTEROL 0.5-3(2.5)MG/3ML NEB HHN ONE ×2 (10:30→12:00)
[2021-11-12] MEDS ORDERED: ALBU05 NEB (13:08)
[2021-11-12] MEDS ORDERED: P20 MT (13:08)
[2021-11-12] MEDS ORDERED: ALBU6.7H15 INH (13:08)
[2021-11-12 13:40] VITALS: BP 133/78
== END 2021-11-12 13:44 | disposition home or self-care (01) ==
LOC: ER 08:26
DX: J45.901 Unspecified asthma with (acute) exacerbation (principal); Z86.718 Personal history of other venous thrombosis and embolism; Z79.01 Long term (current) use of anticoagulants
CPT/HCPCS: 94640; 99284; J7512; Z7610

== ENCOUNTER 2021-11-25 02:20 | Emergency (ER) | payer OTHER ==
[~2021-11-25] VITALS: Ht 165.1 cm; Wt 127.0 kg
[2021-11-25 02:36] VITALS: BP 125/62
[2021-11-25] MEDS ORDERED: ALBUTEROL (0.083%) 2.5MG/3ML NEB HHN STA (04:26)
[2021-11-25] MEDS ORDERED: PREDNISONE 20MG TABLET PO STA (04:26)
[2021-11-25] MEDS ORDERED: IPRATROPIUM BROMIDE (0.02%) 0.5MG/2.5ML NEB HHN STA (04:26)
[2021-11-25] MEDS ORDERED: P50 MT (06:18)
[2021-11-25] MEDS ORDERED: ALBU6.7H9 INH (08:03)
== END 2021-11-25 06:52 | disposition home or self-care (01) ==
LOC: ER 02:20
DX: J45.901 Unspecified asthma with (acute) exacerbation (principal); Z79.899 Other long term (current) drug therapy
CPT/HCPCS: 94640; 99283; J7512; Z7610

== ENCOUNTER 2021-11-25 07:18 | Emergency (ER) | payer OTHER ==
[~2021-11-25] VITALS: Ht 165.1 cm; Wt 127.0 kg
[2021-11-25] MEDS ORDERED: ALBU6.7H9 INH (08:03)
[2021-11-25 08:50] VITALS: BP 137/84
== END 2021-11-25 08:51 | disposition home or self-care (01) ==
LOC: ER 07:18
DX: Z76.0 Encounter for issue of repeat prescription (principal); J45.909 Unspecified asthma, uncomplicated
CPT/HCPCS: 99281

== ENCOUNTER 2021-12-09 06:23 | Emergency (ER) | payer OTHER ==
[~2021-12-09] VITALS: Ht 165.1 cm; Wt 144.5 kg
[2021-12-09] MEDS ORDERED: IPRATROPIUM BROMIDE (0.02%) 0.5MG/2.5ML NEB HHN STA (07:14)
[2021-12-09] MEDS ORDERED: PREDNISONE 20MG TABLET PO STA (07:14)
[2021-12-09] MEDS ORDERED: ALBUTEROL (0.083%) 2.5MG/3ML NEB HHN STA (07:14)
[2021-12-09 08:51] VITALS: BP 112/44
[2021-12-09] MEDS ORDERED: P50 PO (09:16)
[2021-12-09] MEDS ORDERED: ALBU6.7H15 INH (09:36)
== END 2021-12-09 09:46 | disposition home or self-care (01) ==
LOC: ER 06:23
DX: J45.901 Unspecified asthma with (acute) exacerbation (principal); Z86.718 Personal history of other venous thrombosis and embolism; Z79.01 Long term (current) use of anticoagulants
CPT/HCPCS: 94640; 99283; J7512; Z7610

== ENCOUNTER 2021-12-31 09:45 | Emergency (ER) | payer OTHER ==
[~2021-12-31] VITALS: Ht 167.6 cm; Wt 150.0 kg
[2021-12-31] MEDS ORDERED: ALBUTEROL (0.083%) 2.5MG/3ML NEB HHN ONE (10:45)
[2021-12-31] MEDS ORDERED: ALBU6.7H9 INH (10:50)
[2021-12-31 11:51] VITALS: BP 113/51
== END 2021-12-31 12:07 | disposition home or self-care (01) ==
LOC: ER 09:45
DX: J45.901 Unspecified asthma with (acute) exacerbation (principal); E66.9 Obesity, unspecified; Z68.43 Body mass index [BMI] 50.0-59.9, adult; Z86.718 Personal history of other venous thrombosis and embolism; Z79.01 Long term (current) use of anticoagulants
CPT/HCPCS: 94640; 99283; Z7610

== ENCOUNTER 2022-01-19 06:22 | Emergency (ER) | payer OTHER ==
[~2022-01-19] VITALS: Ht 165.1 cm; Wt 127.0 kg
[2022-01-19] MEDS ORDERED: ALBUTEROL (0.083%) 2.5MG/3ML NEB HHN ONE (07:15)
[2022-01-19] MEDS ORDERED: ALBU6.7H15 INH (08:25)
[2022-01-19 08:58] VITALS: BP 138/67
== END 2022-01-19 09:00 | disposition home or self-care (01) ==
LOC: ER 06:22
DX: J45.901 Unspecified asthma with (acute) exacerbation (principal); Z79.899 Other long term (current) drug therapy; Z76.0 Encounter for issue of repeat prescription
CPT/HCPCS: 94640; 99283; Z7610